=== PATIENT | male | born 1955 | race Caucasian/White ===

== ENCOUNTER 2020-05-30 16:10 | Emergency (ER) | payer MEDICARE ==
[2020-05-30] MEDS ORDERED: hydrALAZINE 20 MG/ML SDV IM ONE (16:30)
--- NOTE | 2020-05-30 16:36 | EDM.PDOC ---
ED HPI GENERAL MEDICAL PROBLEM - General Chief Complaint: General Stated Complaint: BLOOD PRESSURE HIGH Time Seen by Provider: 05/30/20 16:31 Source of Information: Reports: Patient History Limitations: Reports: No Limitations - History of Present Illness INITIAL COMMENTS - FREE TEXT/NARRATIVE: BP was high at the Dentist's office today, patient underwent tooth extraction x 2. He was advised to follow up in clinic. BP 199/132 at walk-in clinic, sent to ED. Denies prior h/o HTN, hasn't seen a physician for several years. Denies headache or chest pain. Mother has h/o HTN. Does not smoke cigarettes, drink alcohol, or use illicit drugs. Onset: Today - Related Data Allergies Allergy/AdvReac Type Severity Reaction Status Date / Time No Known Allergies Allergy Verified 05/30/20 16:26 Home Meds: Home Meds Aspirin [Adult Low Dose Aspirin EC] 81 mg PO DAILY 05/30/20 [History] Losartan [Cozaar] 50 mg PO DAILY #30 tab 05/30/20 [Rx] Past Medical History - Past Health History Medical/Surgical History: Denies Medical/Surgical History Social & Family History - Tobacco Use Tobacco Use Within Last Twelve Months: No - Alcohol Use Alcohol Use History: No - Recreational Drug Use Recreational Drug Use: No ED ROS GENERAL - Review of Systems Review Of Systems: Comprehensive ROS is negative, except as noted in HPI. ED EXAM, GENERAL - Physical Exam Exam: See Below Exam Limited By: No Limitations General Appearance: Alert, WD/WN, No Apparent Distress Neck: Full Range of Motion Respiratory/Chest: No Respiratory Distress, Lungs Clear, Normal Breath Sounds Cardiovascular: Regular Rate, Rhythm, No Murmur Back Exam: Full Range of Motion Extremities: Normal Range of Motion Neurological: Alert, Normal Cognition Psychiatric: Normal Affect, Normal Mood Skin Exam: Warm, Dry, Intact Course - Vital Signs Last Recorded V/S: Last Vital Signs Temp 37.0 C 05/30/20 16:10 Pulse 86 05/30/20 17:43 Resp 15 05/30/20 17:43 BP 168/112 H 05/30/20 17:43 Pulse Ox 98 05/30/20 17:43 - Orders/Labs/Meds Labs: Laboratory Tests 05/30/20 05/30/20 Range/Units 16:45 16:45 WBC 9.2 (4.5-12.0) X10-3/uL RBC 4.65 (4.30-5.75) x10(6)uL Hgb 14.8 (13.5-17.8) g/dL Hct 43.4 (30.0-51.3) % MCV 93.2 (80-96) fL MCH 31.8 (27.7-33.6) pg MCHC 34.1 (32.2-35.4) g/dL RDW 12.7 (11.5-15.5) % Plt Count 218 (125-369) X10(3)uL MPV 7.8 (7.4-10.4) fL Neut % (Auto) 77.2 (46-82) % Lymph % (Auto) 14.9 (13-37) % Teller % (Auto) 6.9 (4-12) % Eos % (Auto) 1 (1.0-5.0) % Baso % (Auto) 0 (0-2) % Neut # (Auto) 7.0 (1.6-8.3) # Lymph # (Auto) 1.4 (0.6-5.0) # Teller # (Auto) 0.6 (0.0-1.3) # Eos # (Auto) 0.1 (0.0-0.8) # Baso # (Auto) 0.0 (0.0-0.2) # Sodium 142 (135-145) mmol/L Potassium 3.9 (3.5-5.3) mmol/L Chloride 105 (100-110) mmol/L Carbon Dioxide 26 (21-32) mmol/L BUN 15 (7-18) mg/dL Creatinine 1.1 (0.70-1.30) mg/dL Est Cr Clr Drug Dosing 75.66 mL/min Estimated GFR (MDRD) > 60 (>60) BUN/Creatinine Ratio 13.6 (9-20) Glucose 99 (80-116) mg/dL Calcium 9.0 (8.6-10.2) mg/dL Meds: Medications Discontinued Medications Generic Name Dose Route Start Last Admin Trade Name Freq PRN Reason Stop Dose Admin Hydralazine HCl 20 mg 05/30/20 16:30 05/30/20 16:47 Apresoline IM 05/30/20 16:31 20 mg ONETIME ONE Administration Losartan Potassium 50 mg 05/30/20 17:43 Cozaar PO 05/30/20 17:44 ONETIME ONE - Re-Assessments/Exams Free Text/Narrative Re-Assessment/Exam: 05/30/20 17:44 BP improved to 168/112 after Hydralazine 20mg IM. Cozaar 50mg PO given prior to discharge. Departure - Departure Time of Disposition: 17:45 Disposition: Home, Self-Care 01 Condition: Good Clinical Impression: Essential hypertension - Discharge Information *PRESCRIPTION DRUG MONITORING PROGRAM REVIEWED*: No *COPY OF PRESCRIPTION DRUG MONITORING REPORT IN PATIENT KRYSTEN: Not Applicable Prescriptions: Losartan [Cozaar] 50 mg PO DAILY #30 tab Instructions: Hypertension, Adult, [id number], Heart-Healthy Eating Plan, [id number] Referrals: PCP,None [Primary Care Provider] - Forms: ED Department Discharge Additional Instructions: Fill the Cozaar prescription at [facility] and take as directed. Establish with a Primary Physician in 2-3 days. Return to the ER with any c oncerns. Sepsis Event Note (ED) - Evaluation Sepsis Screening Result: No Definite Risk - Focused Exam Vital Signs: Vital Signs Temp Pulse Resp BP Pulse Ox 05/30/20 17:43 86 15 168/112 H 98 05/30/20 17:10 75 14 179/112 H 100 05/30/20 16:10 37.0 C 82 14 185/121 H 98
[2020-05-30] MEDS ORDERED: Losartan 50 MG Tab PO ONE (17:43)
== END 2020-05-30 18:10 | disposition home or self-care (01) ==
LOC: FB.ED 16:10
DX: I10 Essential (primary) hypertension (principal); Z79.82 Long term (current) use of aspirin; Z79.899 Other long term (current) drug therapy
CPT/HCPCS: 36415; 80048; 85025; 96372; 99283; A9270; J0360